=== PATIENT | female | born 1990 | race Two or more races ===

== ENCOUNTER 2022-10-21 10:06 | Outpatient (CLI) | payer OTHER | END 2022-10-21 10:13 | disposition home or self-care (01) | LOC: SONOGRAMA 10:06 | PROVIDERS: ATTEND Pathology Anatomic Pathology | DX: D34 Benign neoplasm of thyroid gland (principal); E07.9 Disorder of thyroid, unspecified; E04.1 Nontoxic single thyroid nodule; E04.9 Nontoxic goiter, unspecified ==